=== PATIENT | female | born 1980 | race Caucasian/White ===

== ENCOUNTER 2016-08-01 19:51 | Emergency (ER) | payer OTHER ==
[~2016-08-01] VITALS: Ht 152.4 cm; Wt 72.4 kg
[2016-08-01 19:53] VITALS: BP 129/92
[2016-08-01] MEDS ORDERED: DIPH,PERTUSS(ACELL),TET VAC/PF 0.5 ML IM-VACC ONE ×2 (20:00→20:30)
[2016-08-01] MEDS ORDERED: LIDOCAINE 1%, 20ML SQ ONE (20:00)
[2016-08-01] MEDS ORDERED: LIDOCAINE 1%, 20ML ONE (20:09)
== END 2016-08-01 21:38 | disposition home or self-care (01) ==
LOC: ED 21:35
DX: S61.301A Unspecified open wound of left index finger with damage to nail, initial encounter (principal); W45.8XXA Other foreign body or object entering through skin, initial encounter; Y93.89 Activity, other specified; Y92.89 Other specified places as the place of occurrence of the external cause; Y99.9 Unspecified external cause status
CPT/HCPCS: 64450; 90471; 90715